=== PATIENT | female | born 1975 | race Native Hawaiian/Other Pacific Islander ===

== ENCOUNTER 2017-09-26 08:17 | Emergency (ER) | payer MEDICAID ==
[2017-09-26 08:55] LABS: Basophils % (Auto) 0.3 % (0.0-1.8); Eosinophils # (Auto) 0.1 K/mm3 (0.0-0.4); Eosinophils % (Auto) 2.3 % (0.0-4.3); Hematocrit 35.8 % (30.3-42.9); Hemoglobin 12.1 gm/dl (10.1-14.3); Lymphocytes # (Auto) 1.7 K/mm3 (1.2-5.4); Lymphocytes % (Auto) 29.4 % (13.4-35.0); Mean Corpuscular HGB Conc 34 % (30-34); Mean Corpuscular Hemoglobin 32 pg (28-32); Mean Corpuscular Volume 94 fl (79-97); Monocytes # (Auto) 0.5 K/mm3 (0.0-0.8); Platelet Count 252 K/mm3 (140-440); Red Blood Count 3.81 M/mm3 (3.65-5.03); Red Cell Distribution Width 13.2 % (13.2-15.2)
[2017-09-26 09:04] LABS: BUN/Creatinine Ratio 12; Blood Urea Nitrogen 6 mg/dL (7-17); Calcium 8.8 mg/dL (8.4-10.2); Hemolysis Index 4
[2017-09-26] MEDS ORDERED: MORPHINE IV ONE ×2 (09:52→12:20)
[2017-09-26] MEDS ORDERED: ZOFRAN IV ONE ×2 (09:52→11:02)
[2017-09-26] MEDS ORDERED: NACL 0.9% 1000 ML 1,000 ML IV ONE (09:52)
[2017-09-26 10:08] LABS: Bilirubin,Urine NEG (Negative); Blood,Urine SM (Negative); Color,Urine Yellow (Yellow); Mucus,Urine FEW /HPF; Protein,Urine <15 mg/dL mg/dL (Negative); Urobilinogen,Urine < 2.0 mg/dL (<2.0)
--- NOTE | 2017-09-26 11:54 | Emergency Department Report ---
ED Female HPI - General Chief complaint: Abdominal Pain Stated complaint: ABD PAIN PREG Source: patient Mode of arrival: Ambulatory Limitations: No Limitations - History of Present Illness Initial comments: 42-year-old female with a past medical history of previous ectopic with rupture treated last year surgically in [place] presents to the hospital complaining of lower abdominal pain 6 days. Pain is constant rate is 7/10 in intensity, sharp, worse with palpation. Worsen the right suprapubic area. She denies nausea, fever, or dysuria. This is the fourth and she has 2 living children history one previous ectopic. LMP was in July 2017. Patient took a test 3 days ago and it was inconclusive. Patient moved to the [facility] 2 months ago and does not have any local physicians. - Related Data Previous Rx's Medication Instructions Recorded Last Taken Type Miconazole Nitrate [Miconazole 7] 100 mg VG QHS #7 supp.vag 09/26/17 Unknown Rx Ondansetron [Zofran Odt] 4 mg PO Q8HR PRN #20 tab.rapdis 09/26/17 Unknown Rx metroNIDAZOLE [Flagyl] 500 mg PO Q12HR 7 Days tab 09/26/17 Unknown Rx Allergies Allergy/AdvReac Type Severity Reaction Status Date / Time cefazolin [From Anc] Allergy Shortness Verified 09/26/17 08:28 of Breath ED Review of Systems ROS: Stated complaint: ABD PAIN PREG Other details as noted in HPI Comment: Unobtainable due to pts medical conditions ED Past Medical Hx - Past Medical History Previous Medical History?: No - Surgical History Additional Surgical History: ECTOPIC - Social History Smoking Status: Never Smoker Substance Use Type: Alcohol - Medications Home Medications: Home Medications Medication Instructions Recorded Confirmed Last Taken Type Miconazole Nitrate [Miconazole 7] 100 mg VG QHS #7 supp.vag 09/26/17 Unknown Rx Ondansetron [Zofran Odt] 4 mg PO Q8HR PRN #20 tab.rapdis 09/26/17 Unknown Rx metroNIDAZOLE [Flagyl] 500 mg PO Q12HR 7 Days tab 09/26/17 Unknown Rx ED Physical Exam - General Limitations: No Limitations - Other Other exam information: General: No limitations, patient is alert in no acute distress Head exam: Atraumatic, normocephalic Eyes exam: Normal appearance, pupils equal reactive to light, extraocular movements intact ENT: Moist mucous membrane, normal oropharynx Neck exam: Normal inspection, full range of motion, no meningismus nontender Respiratory exam: Clear to auscultation bilateral, no wheezes, rales, crackles Cardiovascular: Normal rate and rhythm, normal heart sounds Abdomen: Soft, nondistended, suprapubic abd tenderness, with normal bowel sounds, no rebound, or guarding Extremity: Full range of motion normal inspection no deformity Back: Normal Inspection, full range of motion, no tenderness Neurologic: Alert, oriented x3, cranial nerves intact, no motor or sensory deficit Psychiatric: normal affect, normal mood Skin: Warm, dry, intact ED Course Vital Signs 09/26/17 09/26/17 09/26/17 08:28 09:22 09:23 Temperature 99 F 98.2 F Pulse Rate 63 66 Respiratory 18 15 15 Rate Blood Pressure 122/70 Blood Pressure 110/62 [Left] O2 Sat by Pulse 98 100 100 Oximetry 09/26/17 15:18 Temperature 98.0 F Pulse Rate 65 Respiratory 15 Rate Blood Pressure Blood Pressure 107/65 [Left] O2 Sat by Pulse 100 Oximetry ED Medical Decision Making - Lab Data Result diagrams: 09/26/17 08:45 09/26/17 08:45 Lab Results 09/26/17 09/26/17 09/26/17 Range/Units 08:45 08:45 08:45 WBC 5.8 (4.5-11.0) K/mm3 RBC 3.81 (3.65-5.03) M/mm3 Hgb 12.1 (10.1-14.3) gm/dl Hct 35.8 (30.3-42.9) % MCV 94 (79-97) fl MCH 32 (28-32) pg MCHC 34 (30-34) % RDW 13.2 (13.2-15.2) % Plt Count 252 (140-440) K/mm3 Lymph % (Auto) 29.4 (13.4-35.0) % [place] % (Auto) 9.0 H (0.0-7.3) % Eos % (Auto) 2.3 (0.0-4.3) % Baso % (Auto) 0.3 (0.0-1.8) % Lymph # 1.7 (1.2-5.4) K/mm3 [place] # 0.5 (0.0-0.8) K/mm3 Eos # 0.1 (0.0-0.4) K/mm3 Baso # 0.0 (0.0-0.1) K/mm3 Seg Neutrophils % 59.0 (40.0-70.0) % Seg Neutrophils # 3.4 (1.8-7.7) K/mm3 Sodium 137 (137-145) mmol/L Potassium 3.8 (3.6-5.0) mmol/L Chloride 100.9 (98-107) mmol/L Carbon Dioxide 24 (22-30) mmol/L Anion Gap 16 mmol/L BUN 6 L (7-17) mg/dL Creatinine 0.5 L (0.7-1.2) mg/dL Estimated GFR > 60 ml/min BUN/Creatinine Ratio 12 % Glucose 121 H (65-100) mg/dL Calcium 8.8 (8.4-10.2) mg/dL HCG, Quant [id number] H (0-4) mIU/mL Urine Color (Yellow) Urine Turbidity (Clear) Urine pH (5.0-7.0) Ur Specific [place] (1.003-1.030) Urine Protein (Negative) mg/dL Urine Glucose (UA) (Negative) mg/dL Urine Ketones (Negative) mg/dL Urine Blood (Negative) Urine Nitrite (Negative) Urine Bilirubin (Negative) Urine Urobilinogen (<2.0) mg/dL Ur Leukocyte Esterase (Negative) Urine WBC (Auto) (0.0-6.0) /HPF Urine RBC (Auto) (0.0-6.0) /HPF U Epithel Cells (Auto) (0-13.0) /HPF Urine Mucus /HPF Blood Type Antibody Screen 09/26/17 09/26/17 Range/Units 09:41 09:55 WBC (4.5-11.0) K/mm3 RBC (3.65-5.03) M/mm3 Hgb (10.1-14.3) gm/dl Hct (30.3-42.9) % MCV (79-97) fl MCH (28-32) pg MCHC (30-34) % RDW (13.2-15.2) % Plt Count (140-440) K/mm3 Lymph % (Auto) (13.4-35.0) % [place] % (Auto) (0.0-7.3) % Eos % (Auto) (0.0-4.3) % Baso % (Auto) (0.0-1.8) % Lymph # (1.2-5.4) K/mm3 [place] # (0.0-0.8) K/mm3 Eos # (0.0-0.4) K/mm3 Baso # (0.0-0.1) K/mm3 Seg Neutrophils % (40.0-70.0) % Seg Neutrophils # (1.8-7.7) K/mm3 Sodium (137-145) mmol/L Potassium (3.6-5.0) mmol/L Chloride (98-107) mmol/L Carbon Dioxide (22-30) mmol/L Anion Gap mmol/L BUN (7-17) mg/dL Creatinine (0.7-1.2) mg/dL Estimated GFR ml/min BUN/Creatinine Ratio % Glucose (65-100) mg/dL Calcium (8.4-10.2) mg/dL HCG, Quant (0-4) mIU/mL Urine Color Yellow (Yellow) Urine Turbidity Clear (Clear) Urine pH 7.0 (5.0-7.0) Ur Specific [place] 1.015 (1.003-1.030) Urine Protein <15 mg/dl (Negative) mg/dL Urine Glucose (UA) Neg (Negative) mg/dL Urine Ketones Neg (Negative) mg/dL Urine Blood Sm (Negative) Urine Nitrite Neg (Negative) Urine Bilirubin Neg (Negative) Urine Urobilinogen < 2.0 (<2.0) mg/dL Ur Leukocyte Esterase Neg (Negative) Urine WBC (Auto) 1.0 (0.0-6.0) /HPF Urine RBC (Auto) 5.0 (0.0-6.0) /HPF U Epithel Cells (Auto) 1.0 (0-13.0) /HPF Urine Mucus Few /HPF Blood Type AB POSITIVE Antibody Screen Negative - Radiology Data Radiology results: report reviewed ULTRASOUND OB LESS THAN 14 WEEKS FETUS ULTRASOUND OB TRANSVAGINAL History: Abdominal pain during , history of ectopic . Technique: Transabdominal and transvaginal ultrasound imaging. Findings: The uterus measures 10 x 5 x 7 cm. No uterine fibroid disease. Normal cervix. An intrauterine gestational sac containing a small pole and yolk sac is identified. heart rate measures 152 beats per minute. [place]-rump length measures 14.8 mm which correlates with a 7 week 6 day . Estimated due date 05/09/18. No subchorionic hemorrhage is identified. Both ovaries are visualized and unremarkable in appearance. No pelvic fluid collection. Impression: Viable, single intrauterine as described. No acute abnormality is detected. - Medical Decision Making No specific cause the pain has been identified by patient does not appear to have signs and symptoms of appendicitis. UA negative. No signs of ectopic or torsion. This was discussed with FUNDING COORDINATOR and patiently placed on Tylenol as needed for pain and encouraged to follow up within 3-4 days for reevaluation. Patient given strict instructions to return if symptoms worsen in worsening pain , or vaginal bleeding. Encouraged to take by mouth vitamins initiate care. Will be treated for BV with yeast prophylaxis. - Differential Diagnosis renal colic, ectopic, ovarian cyst, appendicitis Critical Care Time: No Critical care attestation.: If time is entered above; I have spent that time in minutes in the direct care of this critically ill patient, excluding procedure time. ED Disposition Clinical Impression: Abdominal pain, 7 weeks gestation of Disposition: DC-01 TO HOME OR SELFCARE Is pt being admited?: No Does the pt Need Aspirin: No Condition: Stable Instructions: Abdominal Pain (ED), (ED) Additional Instructions: Take Tylenol as needed for pain. Return to ER if symptoms worsen as indicated by your discharge instructions. It is very important that you follow up with [facility] early next week. You may call either the resources provided to schedule an appointment. Case was discussed with Dr. Haynes with my FUNDING COORDINATOR but we both recommended by your reevaluated as soon as possible by an available photographic specialist doctor. Prescriptions: metroNIDAZOLE [Flagyl] 500 mg PO Q12HR 7 Days tab Miconazole Nitrate [Miconazole 7] 100 mg VG QHS #7 supp.vag Ondansetron [Zofran Odt] 4 mg PO Q8HR PRN #20 tab.rapdis PRN Reason: Nausea And Vomiting Referrals: SALVADOR HAYNES MD [Staff Physician] - 2-3 Days NANDO DUNHAM MD [Staff Physician] - 2-3 Days PURA DUNHAM MD [Staff Physician] - 2-3 Days Time of Disposition: 16:11
[2017-09-26] MEDS ORDERED: REGLAN IV ONE (12:17)
[2017-09-26] MEDS ORDERED: MORPHINE ONE (12:20)
[2017-09-26] MEDS ORDERED: REGLAN ONE (12:20)
--- NOTE | 2017-09-26 12:26 | Ultrasound Report ---
ULTRASOUND OB LESS THAN 14 WEEKS FETUS ULTRASOUND OB TRANSVAGINAL History: Abdominal pain during , history of ectopic . Technique: Transabdominal and transvaginal ultrasound imaging. Findings: The uterus measures 10 x 5 x 7 cm. No uterine fibroid disease. Normal cervix. An intrauterine gestational sac containing a small pole and yolk sac is identified. heart rate measures 152 beats per minute. [place]-rump length measures 14.8 mm which correlates with a 7 week 6 day . Estimated due date 05/09/18. No subchorionic hemorrhage is identified. Both ovaries are visualized and unremarkable in appearance. No pelvic fluid collection. Impression: Viable, single intrauterine as described. No acute abnormality is detected.
--- NOTE | 2017-09-26 12:26 | Ultrasound Report ---
ULTRASOUND OB LESS THAN 14 WEEKS FETUS ULTRASOUND OB TRANSVAGINAL History: Abdominal pain during , history of ectopic . Technique: Transabdominal and transvaginal ultrasound imaging. Findings: The uterus measures 10 x 5 x 7 cm. No uterine fibroid disease. Normal cervix. An intrauterine gestational sac containing a small pole and yolk sac is identified. heart rate measures 152 beats per minute. [place]-rump length measures 14.8 mm which correlates with a 7 week 6 day . Estimated due date 05/09/18. No subchorionic hemorrhage is identified. Both ovaries are visualized and unremarkable in appearance. No pelvic fluid collection. Impression: Viable, single intrauterine as described. No acute abnormality is detected.
--- NOTE | 2017-09-26 13:55 | Event Note ---
Date: 09/26/17 s/wDr. Weiss by phone. Discussed possible ovarian torsion
[2017-09-26 15:20] VITALS: BP 107/65
== END 2017-09-26 16:17 | disposition home or self-care (01) ==
LOC: ED 08:17
DX: O26.891 Other specified pregnancy related conditions, first trimester (principal); R10.30 Lower abdominal pain, unspecified; Z3A.01 Less than 8 weeks gestation of pregnancy; Z88.8 Allergy status to other drugs, medicaments and biological substances
CPT/HCPCS: 36415; 76801; 76817; 80048; 81001; 84702; 85025; 86850; 86900; 86901; 87210; 87591; 96374; 96375; 96376; 99285; J2270; J2405; J2765; J7030

== ENCOUNTER 2017-11-11 21:47 | Emergency (ER) | payer SELFPAY ==
[2017-11-11 23:03] LABS: Bilirubin,Urine NEG (Negative); Blood,Urine NEG (Negative); Calcium Oxalate Crystals,Urine 2+; Color,Urine Yellow (Yellow); Mucus,Urine 2+ /HPF; Protein,Urine <15 mg/dL mg/dL (Negative); Urobilinogen,Urine < 2.0 mg/dL (<2.0)
[2017-11-12] MEDS ORDERED: NACL 0.9% 1000 ML 1,000 ML IV ONE (01:19)
--- NOTE | 2017-11-12 02:45 | Ultrasound Report ---
FINAL REPORT EXAM: US OB > = 14 WEEKS FETUS HISTORY: preg with abd pain h/o of EP TECHNIQUE: Transabdominal sonographic evaluation was performed of the female pelvis with and without color Doppler imaging. PRIORS: None. FINDINGS: Single, viable intrauterine is present. Amniotic fluid index appears appropriate. Measurements: heart rate- 143 beats per minute. Cervical length: 2.6 cm Placental grade: Grade 0 Placental location: Posterior and low lying. Amniotic fluid, within normal limits. position: Transverse left. Biparietal diameter: 2.05 cm, 15 week 1 day. Head circumference: 10.91 cm, 15 week 2 day. Abdominal circumference: 8.93 cm, 15 week 1 day. Femoral length: 1.52 cm, 14 week 3 day. Cephalic index: 76.9 IMPRESSION: Single, viable intrauterine with estimated age by ultrasound criteria 15 weeks 0 days. Note: Follow-up anatomy scan recommended at week 20-22. Placenta appears mildly low lying. Attention at followup anatomic survey.
--- NOTE | 2017-11-12 03:20 | Emergency Department Report ---
ED HPI - General Chief complaint: Abdominal Pain Stated complaint: ABDOMINAL PAIN Time Seen by Provider: 11/12/17 01:09 Source: patient Mode of arrival: Ambulatory Limitations: No Limitations - History of Present Illness Initial comments: This is a 42-year-old [place] Citizen female who is . Patient took a test particularly 2 weeks ago and said great deal of cramping last several days. Patient does have a history of ectopic . Last menstrual period was around June or July the patient doesn't quite remember but she does have a history of regular periods. Patient states she also has some nausea. Patient has no current vaginal bleeding but did see some mild spotting several days ago which is now resolved. Patient states the cramps were 8 out of 10 in severity and suprapubic region. - Related Data Previous Rx's Medication Instructions Recorded Last Taken Type Miconazole Nitrate [Miconazole 7] 100 mg VG QHS #7 supp.vag 09/26/17 Unknown Rx Ondansetron [Zofran Odt] 4 mg PO Q8HR PRN #20 tab.rapdis 09/26/17 Unknown Rx metroNIDAZOLE [Flagyl] 500 mg PO Q12HR 7 Days tab 09/26/17 Unknown Rx Ondansetron [Zofran Odt] 4 mg PO Q8HR PRN #10 tab.rapdis 11/12/17 Unknown Rx Allergies Allergy/AdvReac Type Severity Reaction Status Date / Time cefazolin [From Anc] Allergy Shortness Verified 09/26/17 08:28 of Breath ED Review of Systems ROS: Stated complaint: ABDOMINAL PAIN Other details as noted in HPI Comment: All other systems reviewed and negative ED Past Medical Hx - Surgical History Additional Surgical History: ECTOPIC - Social History Smoking Status: Former Smoker Substance Use Type: None - Medications Home Medications: Home Medications Medication Instructions Recorded Confirmed Last Taken Type Miconazole Nitrate [Miconazole 7] 100 mg VG QHS #7 supp.vag 09/26/17 Unknown Rx Ondansetron [Zofran Odt] 4 mg PO Q8HR PRN #20 tab.rapdis 09/26/17 Unknown Rx metroNIDAZOLE [Flagyl] 500 mg PO Q12HR 7 Days tab 09/26/17 Unknown Rx Ondansetron [Zofran Odt] 4 mg PO Q8HR PRN #10 tab.rapdis 11/12/17 Unknown Rx ED Physical Exam - General Limitations: No Limitations General appearance: alert, in no apparent distress - Head Head exam: Present: atraumatic, normocephalic - Eye Eye exam: Present: normal appearance - ENT ENT exam: Present: mucous membranes moist - Neck Neck exam: Present: normal inspection - Respiratory Respiratory exam: Present: normal lung sounds bilaterally. Absent: respiratory distress, wheezes, rales, rhonchi - Cardiovascular Cardiovascular Exam: Present: regular rate, normal rhythm. Absent: systolic murmur, diastolic murmur, rubs, gallop - GI/Abdominal GI/Abdominal exam: Present: soft, tenderness (suprapubic), normal bowel sounds. Absent: distended, guarding, rebound, rigid - Extremities Exam Extremities exam: Present: normal inspection - Back Exam Back exam: Present: normal inspection - Neurological Exam Neurological exam: Present: alert, oriented X3 - Psychiatric Psychiatric exam: Present: normal affect, normal mood - Skin Skin exam: Present: warm, dry, intact, normal color. Absent: rash ED Course Vital Signs 11/11/17 11/12/17 11/12/17 22:23 01:20 02:56 Temperature 98.3 F 98.0 F Pulse Rate 67 68 Respiratory 18 14 14 Rate Blood Pressure 112/68 Blood Pressure 118/59 [Left] O2 Sat by Pulse 100 99 99 Oximetry ED Medical Decision Making - Lab Data Lab Results 11/11/17 11/11/17 Range/Units 22:42 22:51 HCG, Quant 80071 H (0-4) mIU/mL Urine Color Yellow (Yellow) Urine Turbidity Cloudy (Clear) Urine pH 5.0 (5.0-7.0) Ur Specific [place] 1.025 (1.003-1.030) Urine Protein <15 mg/dl (Negative) mg/dL Urine Glucose (UA) Neg (Negative) mg/dL Urine Ketones Neg (Negative) mg/dL Urine Blood Neg (Negative) Urine Nitrite Neg (Negative) Urine Bilirubin Neg (Negative) Urine Urobilinogen < 2.0 (<2.0) mg/dL Ur Leukocyte Esterase Neg (Negative) Urine WBC (Auto) 2.0 (0.0-6.0) /HPF Urine RBC (Auto) 5.0 (0.0-6.0) /HPF U Epithel Cells (Auto) 30.0 H (0-13.0) /HPF Calcium Oxalate Crystal 2+ Urine Mucus 2+ /HPF - Radiology Data Patient is 15 weeks with viable IUP. No acute pathology is found - Medical Decision Making Patient is partially 15 weeks and could be having some round ligament pain. Patient be discharged home with instructions to use Tylenol for cramps as well as Zofran for her nausea. Patient was given IV hydration as well Critical care attestation.: If time is entered above; I have spent that time in minutes in the direct care of this critically ill patient, excluding procedure time. ED Disposition Clinical Impression: Abdominal cramping affecting Disposition: DC-01 TO HOME OR SELFCARE Is pt being admited?: No Does the pt Need Aspirin: No Condition: Stable Instructions: Abdominal Pain in (ED) Referrals: SALVADOR JEWELL MD [Staff Physician] - 3-5 Days Time of Disposition: 03:20
[2017-11-12 03:51] VITALS: BP 121/67
== END 2017-11-12 03:50 | disposition home or self-care (01) ==
LOC: ED 21:47
DX: O26.891 Other specified pregnancy related conditions, first trimester (principal); Z3A.15 15 weeks gestation of pregnancy; Z88.8 Allergy status to other drugs, medicaments and biological substances; Z87.891 Personal history of nicotine dependence
CPT/HCPCS: 36415; 76805; 81001; 84702; 96360; 99284; J7030

== ENCOUNTER 2018-01-13 09:01 | Outpatient (CLI) | payer MEDICAID ==
[2018-01-13 09:44] VITALS: BP 100/70
[2018-01-13] MEDS ORDERED: LACTATED RINGERS 1,000 ML ONE (10:30)
[2018-01-13 12:50] LABS: Bilirubin,Urine NEG (Negative); Blood,Urine MOD (Negative); Color,Urine Yellow (Yellow); Mucus,Urine 1+ /HPF; Protein,Urine <15 mg/dL mg/dL (Negative); Urobilinogen,Urine < 2.0 mg/dL (<2.0); WBC,Urine < 1.0 /HPF (0.0-6.0)
--- NOTE | 2018-01-13 13:54 | Ultrasound Report ---
OB ULTRASOUND OB ULTRASOUND TRANSVAGINAL History abdominal pain. Technique: Transabdominal and transvaginal ultrasound with Doppler interrogation. Gestation: Single Position: Cephalic Amniotic Fluid: Normal PRANAY = 12.8 cm Placenta: Posterior, slightly low-lying Placental Grade: 2 Heart Rate: 144 BPM Cervical length: 3.9 cm (Normal > 3 cm) NEUROANATOMY VISUALIZED: Choroid Plexus Cisterna Magnum Cerebellum Lateral Ventricle ANATOMY VISUALIZED: Stomach Kidneys Bladder Diaphragm 4 Chamber Heart Heart 3 Vessel Cord Abd. Cord Insert SPINE VISUALIZED: Longitudinal Transverse BPD: 5.7 cm = 23 w 3 d HC: 21.5 cm = 23 w 4 d AC: 19.5 cm = 24 w 1 d FL: 4.5 cm = 24 w 5 d HC/AC Ratio: 1.1 Cephalic Index: 78.3 Estimated Weight: 680 grams Clinical age = 23 w 3 d EDC: 05/09/18 US Gest. Age = 24 w 0 d EDC: 05/05/18 IMPRESSION: Viable, single intrauterine as described. No acute abnormality is detected.
[2018-01-13] MEDS ORDERED: PEPCID IV SCH (14:00)
== END 2018-01-13 13:33 | disposition home or self-care (01) ==
LOC: TRG 09:01
PROVIDERS: ATTEND Obstetrics & Gynecology
DX: O47.02 False labor before 37 completed weeks of gestation, second trimester (principal); O99.512 Diseases of the respiratory system complicating pregnancy, second trimester; J45.909 Unspecified asthma, uncomplicated; Z3A.24 24 weeks gestation of pregnancy
CPT/HCPCS: 76805; 76817; 81001; J7120

== ENCOUNTER 2018-04-03 15:22 | Outpatient (CLI) | payer SELFPAY ==
[2018-04-03] MEDS ORDERED: LACTATED RINGERS 500 ML IV ONE (15:53)
[2018-04-03 16:14] VITALS: BP 118/75
[2018-04-03 16:59] LABS: Bacteria,Urine 1+ /HPF (Negative); Bilirubin,Urine NEG (Negative); Blood,Urine SM (Negative); Color,Urine Yellow (Yellow); Mucus,Urine 1+ /HPF; Protein,Urine <15 mg/dL mg/dL (Negative)
[2018-04-03 17:21] LABS: Basophils % (Auto) 0.2 % (0.0-1.8); Eosinophils # (Auto) 0.1 K/mm3 (0.0-0.4); Eosinophils % (Auto) 2.3 % (0.0-4.3); Hematocrit 32.2 % (30.3-42.9); Lymphocytes # (Auto) 1.9 K/mm3 (1.2-5.4); Lymphocytes % (Auto) 36.6 % (13.4-35.0); Mean Corpuscular HGB Conc 34 % (30-34); Mean Corpuscular Volume 86 fl (79-97); Monocytes # (Auto) 0.5 K/mm3 (0.0-0.8); Monocytes % (Auto) 10.4 % (0.0-7.3); Platelet Count 255 K/mm3 (140-440); Red Blood Count 3.72 M/mm3 (3.65-5.03)
[2018-04-03 18:12] LABS: Hepatitis C Virus Antibody Non-Reactive (NonReactive)
--- NOTE | 2018-04-03 20:10 | Ultrasound Report ---
FINAL REPORT PROCEDURE: Limited obstetrical ultrasound. TECHNIQUE: Real-time limited sonographic examination was performed for evaluation of size, pos ition, heartbeat, fluid volume for each fetus with image documentation (1 or more fetuses). CPT 7681 5 HISTORY: Patient fell, evaluate estimated weight, amniotic fluid index and placenta. COMPARISON: Obstetrical ultrasound 11/11/2017. FINDINGS: There is a single viable fetus in cephalic presentation. Cardiac activity is documented at 159 beats per minute. The amniotic fluid volume appears normal. The amniotic fluid index measures 17.1 centimet ers. The placenta is fundal in location with no evidence of abruption. Measured parameters are as follows: Biparietal diameter 8.4 centimeters, head circumference 31.8 centimeters, abdominal circu mference 30.5 centimeters, femur length 6.9 centimeters. The calculated menstrual age is 34 weeks 6 d ays. The estimated date of confinement is 05/09/2018. The estimated weight is 2509 grams. IMPRESSION: Viable intrauterine fetus in cephalic presentation with a menstrual age of 34 weeks 6 days. No eviden ce of placental abruption.
--- NOTE | 2018-04-03 20:11 | Ultrasound Report ---
FINAL REPORT PROCEDURE: Ultrasound biophysical profile without nonstress test. TECHNIQUE: Sonographic evaluation for breathing, movement, tone, and amniotic flui d volume was performed. CPT 33865 HISTORY: well being, r/o placental abruption, ltd PNC COMPARISON: No prior studies are available for comparison. FINDINGS: Amniotic fluid volume: 2. breathin. movement: 2. tone: 2. Score: 8 of 8. IMPRESSION: Normal biophysical profile.
== END 2018-04-03 20:48 | disposition home or self-care (01) ==
LOC: TRG 15:22
PROVIDERS: ATTEND Obstetrics & Gynecology
DX: O47.03 False labor before 37 completed weeks of gestation, third trimester (principal); Z3A.34 34 weeks gestation of pregnancy
CPT/HCPCS: 36415; 59025; 76816; 76819; 81001; 85025; 85460; 86592; 86706; 86762; 86803; 87806; 96360; J7120

== ENCOUNTER 2018-11-22 10:22 | Emergency (ER) | payer SELFPAY ==
[2018-11-22 10:34] VITALS: BP 118/72
[2018-11-22 11:34] LABS: Bilirubin,Urine NEG (Negative); Blood,Urine LG (Negative); Color,Urine Yellow (Yellow); Mucus,Urine FEW /HPF
[2018-11-22 11:36] LABS: HCG Qualitative,Urine Negative (Negative)
[2018-11-22] MEDS ORDERED: NACL 0.9% 1000 ML 1,000 ML IV ONE (13:41)
[2018-11-22] MEDS ORDERED: CLEOCIN 900 MG/50 mL 900 MG/50 ML BAG IV ONE (13:41)
[2018-11-22] MEDS ORDERED: ZOFRAN IV ONE (13:41)
[2018-11-22] MEDS ORDERED: MORPHINE IV ONE (13:41)
[2018-11-22 13:43] LABS: Basophils % (Auto) 0.2 % (0.0-1.8); Eosinophils # (Auto) 0.2 K/mm3 (0.0-0.4); Eosinophils % (Auto) 2.2 % (0.0-4.3); Hemoglobin 14.1 gm/dl (10.1-14.3); Lymphocytes # (Auto) 1.7 K/mm3 (1.2-5.4); Lymphocytes % (Auto) 23.8 % (13.4-35.0); Mean Corpuscular HGB Conc 35 % (30-34); Mean Corpuscular Volume 94 fl (79-97); Monocytes # (Auto) 0.7 K/mm3 (0.0-0.8); Monocytes % (Auto) 9.9 % (0.0-7.3); Platelet Count 195 K/mm3 (140-440); Red Blood Count 4.37 M/mm3 (3.65-5.03); Red Cell Distribution Width 14.8 % (13.2-15.2)
[2018-11-22 14:10] LABS: Alanine Aminotransferase 23 units/L (7-56); Albumin 4.4 g/dL (3.9-5); BUN/Creatinine Ratio 17; Blood Urea Nitrogen 10 mg/dL (7-17); Calcium 9.3 mg/dL (8.4-10.2); Hemolysis Index 10
--- NOTE | 2018-11-22 14:12 | Emergency Department Report ---
- General Chief complaint: Abdominal Pain Stated complaint: ABD/BREAST PAIN/REDNESS Time Seen by Provider: 11/22/18 12:29 Source: patient Mode of arrival: Ambulatory Limitations: No Limitations - History of Present Illness Initial comments: This is a 43-year-old female nontoxic, well nourished in appearance, no acute signs of distress presents to the ED with c/o of redness with swelling to the right breast. Patient stated she finished breast feeding 6 months ago. Stated that pain radiates to abdominal pain. Patient denies any pus or drainage. Patient denies any fever, chills, nausea, vomiting, chest pain, shortness of breath, headache or stiff neck. Patient stated allergies to Cefazolin. MD complaint: other (right breast tissue redness with mass) Severity: moderate Severity scale (0 -10): 8 Quality: aching Consistency: constant Improves with: none Worsens with: none Associated symptoms: denies other symptoms - Related Data Previous Rx's Medication Instructions Recorded Last Taken Type Miconazole Nitrate [Miconazole 7] 100 mg VG QHS #7 supp.vag 09/26/17 Unknown Rx Ondansetron [Zofran Odt] 4 mg PO Q8HR PRN #20 tab.rapdis 09/26/17 Unknown Rx metroNIDAZOLE [Flagyl] 500 mg PO Q12HR 7 Days tab 09/26/17 Unknown Rx Ondansetron [Zofran Odt] 4 mg PO Q8HR PRN #10 tab.rapdis 11/12/17 Unknown Rx Acetaminophen/Codeine [Tylenol 1 tab PO Q6H PRN #12 tab 11/22/18 Unknown Rx /Codeine # 3 tab] Clindamycin [Clindamycin CAP] 300 mg PO Q8H #14 cap 11/22/18 Unknown Rx Allergies Allergy/AdvReac Type Severity Reaction Status Date / Time cefazolin [From Ancef] Allergy Intermediate Shortness Verified 04/03/18 15:53 of Breath Abscess Boil HPI - HPI Chief Complaint: Abdominal Pain Stated Complaint: ABD/BREAST PAIN/REDNESS Time Seen by Provider: 11/22/18 12:29 Home Medications: Previous Rx's Medication Instructions Recorded Last Taken Type Miconazole Nitrate [Miconazole 7] 100 mg VG QHS #7 supp.vag 09/26/17 Unknown Rx Ondansetron [Zofran Odt] 4 mg PO Q8HR PRN #20 tab.rapdis 09/26/17 Unknown Rx metroNIDAZOLE [Flagyl] 500 mg PO Q12HR 7 Days tab 09/26/17 Unknown Rx Ondansetron [Zofran Odt] 4 mg PO Q8HR PRN #10 tab.rapdis 11/12/17 Unknown Rx Acetaminophen/Codeine [Tylenol 1 tab PO Q6H PRN #12 tab 11/22/18 Unknown Rx /Codeine # 3 tab] Clindamycin [Clindamycin CAP] 300 mg PO Q8H #14 cap 11/22/18 Unknown Rx Allergies/Adverse Reactions: Allergies Allergy/AdvReac Type Severity Reaction Status Date / Time cefazolin [From Ancef] Allergy Intermediate Shortness Verified 04/03/18 15:53 of Breath ED Review of Systems ROS: Stated complaint: ABD/BREAST PAIN/REDNESS Other details as noted in HPI Constitutional: denies: chills, fever Eyes: denies: eye pain, eye discharge, vision change ENT: denies: ear pain, throat pain Respiratory: denies: cough, shortness of breath, wheezing Cardiovascular: denies: chest pain, palpitations Endocrine: no symptoms reported Gastrointestinal: denies: abdominal pain, nausea, diarrhea Genitourinary: denies: urgency, dysuria, discharge Musculoskeletal: denies: back pain, joint swelling, arthralgia Skin: denies: rash, lesions Neurological: denies: headache, weakness, paresthesias Psychiatric: denies: anxiety, depression Hematological/Lymphatic: denies: easy bleeding, easy bruising ED Past Medical Hx - Past Medical History Previous Medical History?: Yes Hx Hypertension: No Hx Diabetes: No Hx Deep Vein Thrombosis: No Hx Renal Disease: No Hx Sickle Cell Disease: No Hx Seizures: No Hx Asthma: Yes Hx HIV: No - Surgical History Past Surgical History?: Yes Additional Surgical History: ECTOPIC - Social History Smoking Status: Never Smoker Substance Use Type: Alcohol - Medications Home Medications: Home Medications Medication Instructions Recorded Confirmed Last Taken Type Miconazole Nitrate [Miconazole 7] 100 mg VG QHS #7 supp.vag 09/26/17 Unknown Rx Ondansetron [Zofran Odt] 4 mg PO Q8HR PRN #20 tab.rapdis 09/26/17 Unknown Rx metroNIDAZOLE [Flagyl] 500 mg PO Q12HR 7 Days tab 09/26/17 Unknown Rx Ondansetron [Zofran Odt] 4 mg PO Q8HR PRN #10 tab.rapdis 11/12/17 Unknown Rx Acetaminophen/Codeine [Tylenol 1 tab PO Q6H PRN #12 tab 11/22/18 Unknown Rx /Codeine # 3 tab] Clindamycin [Clindamycin CAP] 300 mg PO Q8H #14 cap 11/22/18 Unknown Rx ED Physical Exam - General Limitations: No Limitations General appearance: alert, in no apparent distress - Head Head exam: Present: atraumatic, normocephalic - Neck Neck exam: Present: normal inspection, full ROM. Absent: tenderness, meningismus, lymphadenopathy - GI/Abdominal GI/Abdominal exam: Present: soft, normal bowel sounds. Absent: distended, tenderness, guarding, rebound, rigid, diminished bowel sounds - Extremities Exam Extremities exam: Present: normal inspection, full ROM, normal capillary refill. Absent: tenderness - Back Exam Back exam: Present: normal inspection, full ROM. Absent: tenderness, CVA tenderness (R), CVA tenderness (L), muscle spasm, paraspinal tenderness, vertebral tenderness, rash noted - Neurological Exam Neurological exam: Present: alert, oriented X3, normal gait - Psychiatric Psychiatric exam: Present: normal affect, normal mood - Skin Skin exam: Present: warm, dry, intact, normal color, other (right breast 3 cm x 3 cm redness with palpable mass) - Other Other exam information: Amy Calvillo RN present during exam ED Course Vital Signs 11/22/18 10:29 Temperature 98.4 F Pulse Rate 86 Respiratory 20 Rate Blood Pressure 118/72 O2 Sat by Pulse 96 Oximetry - Reevaluation(s) Reevaluation #1: 11/22/18 14:12 Patient is speaking in full sentences with no signs of distress noted. ED Medical Decision Making - Lab Data Result diagrams: 11/22/18 13:30 11/22/18 13:30 - Medical Decision Making This is a 43-year-old female that presents with cellulitis. Patient is stable and was examined by me. There is no induration, fluctuance. No signs of abscess formation. The area has been outlined with a permanent marker and patient was instructed to observe symptoms of increased redness or swelling and to return to the ER if this does occur. Labs are unremarkable. Ultrasound of right breast has been obtained and I spoke with Diomedes Welsh from [facility] with no abscess noted. Patient is notified of the ultrasound report w ith no questions noted by the patient. Patient did receive 1 L of normal saline as well as clindamycin 900 IV and morphine. Patient stated a family member will drive the patient home after discharge due to possible drowsiness and morphine. I will discharge patient with Clinda. Patient was referred to Follow-up with a primary care doctor in 3-5 days or if symptoms worsen and continue return to emergency room as soon as possible. At time of discharge, the patient does not seem toxic or ill in appearance. No acute signs of distress noted. Patient agrees to discharge treatment plan of care. No further questions noted by the patient. Critical care attestation.: If time is entered above; I have spent that time in minutes in the direct care of this critically ill patient, excluding procedure time. ED Disposition Clinical Impression: Cellulitis Qualifiers: Site of cellulitis: unspecified site Qualified Code(s): L03.90 - Cellulitis, unspecified Disposition: DC- TO HOME OR SELFCARE Is pt being admited?: No Does the pt Need Aspirin: No Condition: Stable Instructions: Acetaminophen/Codeine (By mouth), Cellulitis (ED) Additional Instructions: Do not operate any machinery while taking Tylenol with codeine as this may cause drowsiness. Follow-up with a primary care doctor in 3-5 days or if symptoms worsen and continue return to emergency room as soon as possible. Prescriptions: Clindamycin [Clindamycin CAP] 300 mg PO Q8H #14 cap Acetaminophen/Codeine [Tylenol /Codeine # 3 tab] 1 tab PO Q6H PRN #12 tab PRN Reason: Pain , Severe (7-10) Referrals: PRIMARY CAREMD [Primary Care Provider] - 3-5 Days SERA JIMENES MD [Staff Physician] - 3-5 Days [facility] [Outside] - 3-5 Days [facility] [Outside] - 3-5 Days Forms: Work/School Release Form(ED)
[2018-11-22] MEDS ORDERED: TORADOL IV ONE (17:54)
--- NOTE | 2018-11-22 18:24 | Ultrasound Report ---
US breast RT limited INDICATION / CLINICAL INFORMATION: right breast redness with mass r/o abscess. COMPARISON: None available. FINDINGS: No fluid collection is seen in the right breast in the area of the pain. There is no evidence of an a bscess. IMPRESSION: Negative ultrasound of the right breast. No evidence of an abscess in the area the patient's pain Signer Name: Diomedes CLEARY Signed: 11/22/2018 6:20 PM Workstation Name: [email or web address]
== END 2018-11-22 18:45 | disposition home or self-care (01) ==
LOC: ED 10:22
DX: L03.90 Cellulitis, unspecified (principal); J45.909 Unspecified asthma, uncomplicated; Z79.899 Other long term (current) drug therapy; Z88.8 Allergy status to other drugs, medicaments and biological substances
CPT/HCPCS: 36415; 76642; 80053; 81001; 81025; 83690; 85025; 96365; 96375; 99284; J1885; J2270; J2405; J7030